=== PATIENT | female | born 1985 | race Caucasian/White ===

== ENCOUNTER 2020-08-11 11:23 | Emergency (ER) | payer OTHER, SELFPAY ==
--- NOTE | 2020-08-11 11:33 | ED.BACK ---
HPI - Back Pain/Injury General Chief Complaint: Back Pain/Injury Stated Complaint: back pain Source: patient and RN notes reviewed Mode of arrival: ambulatory Limitations: no limitations History of Present Illness MD elicited complaint: back pain Related Data Home Medications Medication Instructions Recorded Confirmed norgestimate 0.25 mg-ethinyl 1 tablet PO DAILY 04/11/20 08/11/20 estradiol 35 mcg tablet Allergies Allergy/AdvReac Type Severity Reaction Status Date / Time No Known Allergies Allergy Unknown Unknown Verified 08/11/20 11:35 Review of Systems Review of Systems: Narrative: CONSTITUTIONAL: Denies malaise, chills, sweats, or fever. EYES: Denies visual changes, redness, or discharge. ENT: Denies rhinorrhea, congestion, sinus pain, otalgia or sore throat. CARDIOVASCULAR: Denies chest pain, palpitations, or edema. RESPIRATORY: Denies cough or dyspnea. GASTROINTESTINAL: Denies abdominal pain, nausea, vomiting, diarrhea, bloody, or mucous stools. GENITOURINARY: Denies dysuria or hematuria. SKIN: Denies rash or itching. MUSCULOSKELETAL: Denies back pain, joint pain, or myalgia. NEUROLOGIC: Denies numbness, weakness, or headache. PSYCHIATRIC: Denies anxiety or depression. All systems reviewed & are unremarkable except as noted in HPI and below PMFSH Past Medical History Medical History (Updated 08/11/20 @ 11:57 by Khalida Escalona NP) Hypothyroidism (acquired) Social History Social History Smoking status: Former smoker Smoking end date: 05/26/16 Alcohol intake: never Comments At time of signature, agree with nursing past medical, surgical, social and family history. There is no relevant family history pertinent to the presenting complaint Exam Narrative: Exam Narrative: GENERAL: Well-appearing, well-nourished, and in no acute distress. HEAD: Normocephalic, atraumatic. EYES: PERRLA and EOMI. NECK: Supple. No lymphadenopathy. CHEST: Clear to auscultation. No respiratory distress. HEART: Regular rate and rhythm. Distal pulses palpable and equal, cap refill <3 seconds ABDOMEN: Soft, nontender, nondistended, normal active bowel sounds, no palpable or pulsatile masses. No CVA tenderness MUSCULOSKELETAL: Normal range of motion and strength in all extremities; 5/5 strength with hip flexion and extension, dorsiflexion and extension, knee flexion and extension, plantar flexion and extension. Normal sensation in dermatomal distributions with sensitivity to light touch and pain. No midline back tenderness to palpation. No paraspinal tenderness. Transfers from lying to sitting to standing. SKIN: Warm, dry, no rash. No ecchymosis, erythema, open wounds to back. NEURO: No focal deficits. Alert and oriented x3. Reflexes intact. Normal gait. PSYCH: Normal mood and affect Course Course Emergency Course: Patient is aware of diagnosis, understands and agrees to treatment plan. Anticipatory guidance given. Patient agrees to follow-up as directed and is aware of reasons to seek care at the emergency department. Portions of this record may have been created with voice recognition software Vital Signs Vital signs: Reviewed. MDM - Back Pain/Injury MDM Narrative Medical decision making narrative: No risk factors or findings concerning for epidural abscess, diskitis, vertebral osteomyelitis, cord compression, cauda equina, vertebral fracture or bone malignancy, AAA, or pyelonephritis. Patient instructed to consider further imaging and workup through their primary care physician as an outpatient if symptoms persist. Critical Care Time Critical Care Time Critical Care Time: No Discharge Plan Discharge Clinical Impression: Pain of right scapula Patient Disposition: Home, Self-Care Condition: Stable Instructions: Musculoskeletal Pain (ED) Additional Instructions: Please keep your appointment with your primary care provider and talk to them about se
[2020-08-11 11:42] VITALS: BP 125/81; PULSE 95; RESP 16; TEMP 36.5; O2SAT 99
== END 2020-08-11 12:00 | disposition home or self-care (01) ==
PROVIDERS: Emergency Provider Nurse Practitioner; PCP Emergency Medicine
DX: M25.511 Pain in right shoulder (principal); E03.9 Hypothyroidism, unspecified
CPT/HCPCS: 99213; G0463

== ENCOUNTER 2022-07-27 16:41 | Emergency (ER) | payer OTHER, SELFPAY ==
[2022-07-27 16:57] VITALS: BP 127/63; PULSE 95; RESP 16; TEMP 36.6; O2SAT 99
--- NOTE | 2022-07-27 17:08 | ED.WOUNDLAC ---
HPI - Wound/Laceration General Chief Complaint: Wound/Laceration Stated Complaint: Left Hand Finger Laceration Time Seen by Provider: 07/27/22 17:00 Source: patient Mode of arrival: ambulatory Limitations: no limitations History of Present Illness HPI narrative: Joaquina is a 36-year-old female patient presenting to the clinic today with complaints of a laceration to her left 3rd finger. She reports that she was cutting a zip tie and her scissors slipped and cut her finger. Her tetanus shot is up-to-date. Bleeding is controlled. This occurred approximately 30 minutes prior to arrival. Tetanus is up-to-date Related Data Home Medications Medication Instructions Recorded Confirmed cholecalciferol (vitamin D3) 25 25 mcg PO DAILY 06/04/22 06/04/22 mcg (1,000 unit) capsule cyanocobalamin (vitamin B-12) 500 250 mcg PO DAILY 06/04/22 06/04/22 mcg tablet (Vitamin B-12) duloxetine 60 mg capsule,delayed 60 mg PO DAILY 06/04/22 06/04/22 release fluoxetine 10 mg tablet 10 mg PO DAILY 06/04/22 06/04/22 hydrocodone 5 mg-acetaminophen 325 1 tablet PO Q8H PRN 06/04/22 06/04/22 mg tablet lorazepam 1 mg tablet 1 mg PO TID PRN 06/04/22 06/04/22 solifenacin 10 mg tablet (Vesicare) 10 mg PO DAILY 06/04/22 06/04/22 Allergies Allergy/AdvReac Type Severity Reaction Status Date / Time No Known Allergies Allergy Unknown Unknown Verified 06/04/22 09:39 Review of Systems Review of Systems: Pertinent positives per HPI. Patient denies any fever, chills, rash, headache, visual changes, dizziness, cough, runny nose, sore throat, shortness of breath, chest pain, palpitations, nausea, vomiting, diarrhea, constipation, abdominal pain, or any urinary issues. [facility] Past Medical History Medical History (Updated 07/27/22 @ 17:47 by Danny Hodge, LARISA) Anxiety and depression as a teenager Asthma (~1996) Chronic back pain CTS (carpal tunnel syndrome) Difficulty sleeping Fibromyalgia History of hysterosalpingogram (02/02/18) tubes patent Hypothyroidism (acquired) IBS (irritable bowel syndrome) Infertility, female Femara & HCG trigger injections Patellofemoral arthralgia of right knee Pneumonia Spinal stenosis Surgical History Surgical History History of wisdom tooth extraction (~2007) Family History Family History Other Adopted person Social History Social History Smoking packs per day: 0.5 Smoking cigarettes per day: 10.0 Smoking status: Current every day smoker Tobacco type: cigarettes Smoking end date: 05/26/16 Alcohol intake: never Substance use: never Substance use type: does not use Living arrangements: other Additional living arrangements comments: Occupation/Education: 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 There is no relevant family history pertinent to the patient complaint. Exam Narrative: General: Well-developed, well nourished, in no apparent distress Head: Normocephalic, atraumatic. Cardio: Regular rate and rhythm, s1 and s2 normal, no murmur appreciated. Resp: Clear to auscultation bilaterally, no rhonchi, rales, wheezing or rubs. Integumentary: [place], warm, and dry, 1.5 cm laceration to the left 3rd volar aspect of the mid finger. Bleeding controlled Course Course Emergency Course: Portions of this record may have been created with voice recognition software. Level of Care: Express Care Visit Vital Signs Vital signs: Vital Signs Temperature 36.6 C 07/27/22 16:57 Pulse Rate
== END 2022-07-27 17:55 | disposition home or self-care (01) ==
PROVIDERS: Emergency Provider Nurse Practitioner Family; PCP Nurse Practitioner Family
DX: S61.213A Laceration without foreign body of left middle finger without damage to nail, initial encounter (principal); E03.9 Hypothyroidism, unspecified; F17.210 Nicotine dependence, cigarettes, uncomplicated; W26.8XXA Contact with other sharp object(s), not elsewhere classified, initial encounter
CPT/HCPCS: 12001; 99212; G0463